=== PATIENT | female | born 1935 | race Caucasian/White ===

== ENCOUNTER 2016-04-03 15:54 | Emergency (ER) | payer OTHER ==
[~2016-04-03] VITALS: Ht 161.3 cm; Wt 71.5 kg
[~2016-04-03 15:54] MED LIST: EYED; FLNIN NAE
[2016-04-03 16:01] VITALS: TEMP 36.5; Ht 161.3 cm; Wt 71.5 kg
[2016-04-03] MEDS ORDERED: RABIES IMMUNE GLOBULIN (HUMAN) 150 INTER.UNIT/ML 2 ML VIAL IM. ONE (16:15)
[2016-04-03] MEDS ORDERED: RABIES VACCINE (IMOVAX) HUMAN DIPL CELL 2.5 INTER.UNIT/ML SYR IM. ONE (16:15)
[2016-04-03] MEDS ORDERED: AMOX875T PO (17:07)
--- NOTE | 2016-04-03 17:09 | EMERGENCY ROOM VISIT NOTE ---
ED Visit Note First contact with patient: 16:04 CHIEF COMPLAINT: Animal bite HISTORY OF PRESENT ILLNESS: This 80-year-old female patient presents to the emergency department ambulatory after they sustained a dog bite to the right hand. 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 She states that [employer] contacted the brand strategist. The patient reports that the animal 's immunizations are not up-to-date. The patient complains of stinging 3/10 pain at the site of the injury. Pain is worse with movement. Tetanus status is up to date. REVIEW OF SYSTEMS: A 6 system review of systems was completed with positives and pertinent negatives listed in the HPI. ALLERGIES: No known drug allergies MEDICATIONS: Simvastatin, Flonase nasal spray PMH: No significant past medical history. PHYSICAL EXAM: Vital Signs reviewed, see Nurse's notes, vital signs stable. GENERAL: This is a 80-year-old female, awake, alert, well appearing, no acute distress. Non toxic in appearance. MUSCULOSKELETAL: Examination of the right hand reveals multiple superficial puncture wounds over the dorsal aspect of the hand. There is no swelling on inspection. Palpation of the lateral aspect of the hand reveals no tenderness. No significant crepitus or warmth noted. No joint space, tendon, or vascular involvement. Distal pulses intact. SKIN: No signs of infection. NEURO: No sensory or motor deficits noted over all dermatomes and myotomes tested. EMERGENCY DEPARTMENT COURSE AND DECISION MAKING: I examined the patient. The patient presented with an isolated bite wound as described as above. Her tetanus is up-to-date. She will be placed on Augmentin. She was given immunoglobulin at a dose of 20 per kilogram. 2 mL of immunoglobulin were infiltrated directly into the wound. She was given 2.5 units Imovax intramuscularly. Conservative measures were discussed. Her wound was cleansed and dressed with bacitracin and a Band-Aid. She verbalized understanding of my assessment and treatment plan and was discharged home in good condition. The patient was independently evaluated by Dr. Mendez, ED attending physician, who agreed with my assessment and treatment plan. DIAGNOSIS: Dog bite Current/Historical Medications Scheduled Amoxicillin & Pot Clavulanate (Augmentin 875-125 mg), 1 TAB PO BID Fluticasone Propionate (Flonase Nasal [place] *), 2 SPRAYS ANGELA DAILY Simvastatin (Zocor), 10 MG PO QPM Allergies Coded Allergies: No Known Allergies (Unverified , 04/03/16) Vital Signs Date Time Temp Pulse Resp B/P Pulse Ox O2 Delivery O2 Flow Rate FiO2 04/03/16 17:21 78 16 136/71 100 04/03/16 16:01 36.5 79 18 95 Room Air Medications Administered Medications (Trade) Dose Ordered Sig/Bella Route Start Time Stop Time Status Last Admin Dose Admin Rabies Immune Globulin (Imogam Rabies Inj) 1,400 interunit ONCE ONCE IM. 04/03/16 16:15 04/03/16 16:16 DC 04/03/16 16:49 1,400 INTERUNIT Rabies Vaccine Human Diploid Cell (Imovax Rabies) 2.5 interunit ONCE ONCE IM. 04/03/16 16:15 04/03/16 16:16 DC 04/03/16 16:47 2.5 INTERUNIT Departure Information Impression Primary Impression: Dog bite Dispostion Home / Self-Care Condition GOOD Prescriptions Amoxicillin & Pot Clavulanate (Augmentin 875-125 mg) 1 Tab Tab 1 TAB PO BID for 7 Days, #14 TAB Prov: Deana Rodriguez ., CONNIE 04/03/16 Referrals Nayely Mendes D.OBrock (PCP) Patient Instructions My [facility] Additional Instructions You have received her first rabies injection. Today is day 0. You will need to return on days 3, 7 and 14 for subsequent injections. Dates to return: 04/06/16 04/10/16 04/17/16 You were prescribed Augmentin to be taken twice daily as prescribed. This is an antibiotic. All antibiotics have the potential to cause diarrhea. Stop this medication and contact a medical provider if you were to develop any significant adverse side effects including: wheezing, shortness of breath, passing out, vomiting, or a diffuse rash. Always take antibiotics as directed and COMPLETE the ENTIRE course regardless of the improvement of your symptoms. Proper wound care is essential for adequate wound healing and infection prevention. You can shower and clean the wound with soap and water. Do not scour over the wound, pat dry with a towel. Do not submerse the wound (i.e. bathe or dish wash) until the wound has fully healed. You can use an antibiotic ointment with a dressing over the wound for the next 3-4 days. After this time you may leave the wound dry and open to the air. For pain control, you can use the following [id number]-ebxabkj medicines (if >12 yo): - Regular strength (325mg/tab) Tylenol (acetaminophen) 2 tabs every 4-6 hours as needed. Do not exceed 12 tablets in a 24 hour period. Avoid taking more than 4 grams (4000 mg) of Tylenol per day. This includes any other sources of acetaminophen you may take on a regular basis. - Regular strength (200 mg/tab) Advil (ibuprofen) 1-2 tabs every 4-6 hours as needed. Do not exceed a dose of 3200 mg per day. Apply ice to the wound for the next 24-48 hours. Return to the emergency department with worsening redness, worsening swelling, drainage, fevers or any other new/concerning symptoms. Problem Qualifiers Primary Impression: Dog bite Encounter type: initial encounter Qualified Codes: W54.0XXA - Bitten by dog , initial encounter
[2016-04-03 17:21] VITALS: BP 136/71; PULSE 78; O2SAT 100
[2016-04-06] MEDS ORDERED: SIMV10TA2 PO (10:06)
== END 2016-04-03 17:25 | disposition home or self-care (01) ==
LOC: C.EDB 15:56 → C.EDD 17:25
DX: S61.451A Open bite of right hand, initial encounter (principal); W54.0XXA Bitten by dog, initial encounter; Y99.0 Civilian activity done for income or pay

== ENCOUNTER 2016-04-06 14:42 | Emergency (ER) | payer OTHER ==
[~2016-04-06] VITALS: Ht 161.3 cm; Wt 72.7 kg
[~2016-04-06 14:42] MED LIST changes: +AMOX875T PO; -EYED; +SIMV10TA2 PO
[2016-04-06 14:55] VITALS: BP 140/82; PULSE 81; TEMP 36.5; O2SAT 96; Ht 161.3 cm; Wt 72.7 kg
--- NOTE | 2016-04-06 15:07 | EMERGENCY ROOM VISIT NOTE ---
ED Visit Note First contact with patient: 14:57 CHIEF COMPLAINT: Rabies prophylaxis HISTORY OF PRESENT ILLNESS: This 80-year-old female patient presents to the emergency department for their second of 4 rabies shot. The patient has not had any complications from the previous injections. They deny any other complaints. REVIEW OF SYSTEMS: A 6 system review of systems was completed with positives and pertinent negatives listed in the HPI. ALLERGIES: No known allergies MEDICATIONS: No chronic medications PMH: Unchanged from previous visit. PHYSICAL EXAM: Vital Signs: Reviewed Nurse's notes, vital signs stable. GENERAL : White female, in no acute distress, well-developed, well-nourished. HEAD: Atraumatic, without temporal or scalp tenderness. EYES: PERRLA, EOMI, no discharge or injection. SKIN: Dog bite to the medial dorsal right hand appears to be well healing without obvious infection. NEUROLOGICAL: Alert and cooperative. Sensory and motor functions grossly intact. EMERGENCY DEPARTMENT COURSE: I examined the patient. The patient was given Imovax 1ml IM. The patient was observed for 20 minutes with no reaction. The patient was discharged home in stable condition. Current/Historical Medications Scheduled Amoxicillin & Pot Clavulanate (Augmentin 875-125 mg), 1 TAB PO BID Fluticasone Propionate (Flonase Nasal [place] *), 2 SPRAYS ANGELA DAILY Simvastatin (Zocor), 10 MG PO QPM Allergies Coded Allergies: No Known Allergies (Unverified , 04/03/16) Vital Signs Date Time Temp Pulse Resp B/P Pulse Ox O2 Delivery O2 Flow Rate FiO2 04/06/16 14:55 36.5 81 18 140/82 96 Room Air Departure Information Impression Primary Impression: Need for post exposure prophylaxis for rabies Dispostion Home / Self-Care Condition GOOD Forms HOME CARE DOCUMENTATION FORM, IMPORTANT VISIT INFORMATION Patient Instructions My [facility] Additional Instructions You were seen and evaluated today on an emergency basis only. This is not a substitute for, or an effort to provide, complete comprehensive medical care. It is not possible to recognize and treat all injuries or illnesses in a single emergency department visit. Please return to the emergency department on 04/10/2016 and 04/17/2016 for your third and fourth immunizations. You are welcome to return to the emergency department anytime with new, worsening, or concerning symptoms.
[2016-04-06] MEDS ORDERED: RABIES VACCINE (IMOVAX) HUMAN DIPL CELL 2.5 INTER.UNIT/ML SYR IM. ONE (15:15)
[2016-04-06] MEDS ORDERED: FLUT0.15 NAE (15:17)
[2016-04-06] MEDS ORDERED: BND25 PO (15:27)
[2016-04-06] MEDS ORDERED: CETI10TA84 PO (15:27)
[2016-04-06] MEDS ORDERED: EPP3/2 IM (15:27)
== END 2016-04-06 15:32 | disposition home or self-care (01) ==
LOC: C.EDB 14:43 → C.EDD 15:32
DX: Z20.3 Contact with and (suspected) exposure to rabies (principal); Z23 Encounter for immunization

== ENCOUNTER 2016-04-10 11:24 | Emergency (ER) | payer OTHER ==
[~2016-04-10] VITALS: Ht 161.3 cm; Wt 72.2 kg
[~2016-04-10 11:24] MED LIST changes: +BND25 PO; +CETI10TA84 PO; +EPP3/2 IM; -FLNIN NAE; +FLUT0.15 NAE
[2016-04-10 11:30] VITALS: TEMP 36.8; Ht 161.3 cm; Wt 72.2 kg
[2016-04-10] MEDS ORDERED: RABIES VACCINE (IMOVAX) HUMAN DIPL CELL 2.5 INTER.UNIT/ML SYR IM. ONE (11:45)
[2016-04-10] MEDS ORDERED: OXYC1TAB3 PO (12:17)
--- NOTE | 2016-04-10 12:18 | EMERGENCY ROOM VISIT NOTE ---
ED Visit Note First contact with patient: 11:39 Chief Complaint: Rabies Return Visit History of Present Illness: This patient is a [id number] who presents to the Emergency Department ambulatory for their third Rabies Vaccination Injections. The patient reports that they had no reaction to previous injection. Patient denies the development of any fevers, chills, sweats, or URI symptoms. She states that the bite has been healing well and there are no signs of infection. Medications: Unchanged from previous visit. Allergies: Bee venom PMH: Unchanged from previous visit. SHx: Patient lives locally with family. ROS: All pertinent positive and negative review of systems are appropriately documented in the History of Present Illness. Physical Exam: VITAL SIGNS - Vital signs and Nursing Notes were reviewed. GENERAL - This is a 80-year-old female, well-developed, well-nourished, and in no acute distress. SKIN - there are multiple scabbed lesions over the dorsal aspect of the right lateral hand. There is no significant surrounding erythema, edema or drainage. CARDIAC - RRR with normal S1 & S2. No murmurs, rubs, or gallops appreciated. RESPIRATORY - Clear to auscultation bilaterally. No wheezes, rales, or rhonchi appreciated. NEURO - Patient is A&Ox3 and communicates appropriately with the provider. ED Course: Previous ED visit note was reviewed by myself prior to patient evaluation. Patient reports no reaction to the previous injection(s). Patient received 2.5 units of Imovax intramuscularly. Patient was observed in the Emergency Department for greater than 20 minutes prior to discharge without signs of reaction. Patient was educated on worrisome symptoms for return visit to the Emergency Department. Patient discharged to home with the intent for follow-up in the Emergency Department as scheduled for the remainder of their injections. Impression: Rabies Prophylaxis Discharge Instructions: You were seen in the Emergency Department today for your Rabies Prophylaxis Injection. You should continue to follow the Discharge Instructions outlined for you in your initial Emergency Department visit. For pain or fever control, you can use the following cqxm-ozl-pobzswf medicines (if >12 yo): - Regular strength (325mg/tab) Tylenol (acetaminophen) 2 tabs every 4-6 hours as needed. Do not exceed 12 tablets in a 24 hour period. Avoid taking more than 4 grams (4000 mg) of Tylenol per day. This includes any other sources of acetaminophen you may take on a regular basis. - Regular strength (200 mg/tab) Advil (ibuprofen) 1-2 tabs every 4-6 hours as needed. Do not exceed a dose of 3200 mg per day. Return to the emergency department if your symptoms worsen despite treatment course outlined above. Current/Historical Medications Scheduled Amoxicillin & Pot Clavulanate (Augmentin 875-125 mg), 1 TAB PO BID Cetirizine (Zyrtec), 10 MG PO HS Fluticasone Propionate (Nasal) (Flonase Allergy Relief), 2 SPRAYS ANGELA DAILY Simvastatin (Zocor), 10 MG PO HS Scheduled PRN Diphenhydramine Hcl (Benadryl), 50 MG PO Q4-6HRS PRN for ALLERGIC REACTION Epinephrine (Epipen), 0.3 MG IM UD PRN for ALLERGIC REACTION Allergies Coded Allergies: Bee Venom (Verified Allergy, Severe, ANAPHYLAXIS, 04/06/16) Vital Signs Date Time Temp Pulse Resp B/P Pulse Ox O2 Delivery O2 Flow Rate FiO2 04/10/16 12:28 69 18 128/82 95 04/10/16 11:30 36.8 77 18 139/84 93 Room Air Medications Administered Medications (Trade) Dose Ordered Sig/Bella Route Start Time Stop Time Status Last Admin Dose Admin Rabies Vaccine Human Diploid Cell (Imovax Rabies) 2.5 interunit ONCE ONCE IM. 04/10/16 11:45 04/10/16 11:46 DC 04/10/16 11:58 2.5 INTERUNIT Departure Information Impression Primary Impression: Rabies, need for prophylactic vaccination against Dispostion Home / Self-Care Condition GOOD Referrals Nayely Mendes D.OBrock (PCP) Patient Instructions My [facility] Additional Instructions You were seen in the Emergency Department today for your Rabies Prophylaxis Injection. You should continue to follow the Discharge Instructions outlined for you in your initial Emergency Department visit. For pain or fever control, you can use the following spih-aic-bomkacs medicines (if >12 yo): - Regular strength (325mg/tab) Tylenol (acetaminophen) 2 tabs every 4-6 hours as needed. Do not exceed 12 tablets in a 24 hour period. Avoid taking more than 4 grams (4000 mg) of Tylenol per day. This includes any other sources of acetaminophen you may take on a regular basis. - Regular strength (200 mg/tab) Advil (ibuprofen) 1-2 tabs every 4-6 hours as needed. Do not exceed a dose of 3200 mg per day. Return to the emergency department if your symptoms worsen despite treatment course outlined above.
[2016-04-10 12:28] VITALS: BP 128/82; PULSE 69; O2SAT 95
== END 2016-04-10 12:29 | disposition home or self-care (01) ==
LOC: C.EDB 11:25 → C.EDD 12:29
DX: Z23 Encounter for immunization (principal); Z20.3 Contact with and (suspected) exposure to rabies

== ENCOUNTER 2016-04-17 11:44 | Emergency (ER) | payer OTHER ==
[~2016-04-17] VITALS: Ht 161.3 cm; Wt 71.3 kg
[~2016-04-17 11:44] MED LIST changes: -AMOX875T PO
[2016-04-17 11:50] VITALS: Ht 161.3 cm; Wt 71.3 kg
--- NOTE | 2016-04-17 12:05 | EMERGENCY ROOM VISIT NOTE ---
ED Visit Note First contact with patient: 11:54 Chief Complaint: Rabies Return Visit History of Present Illness: This patient is a 80-year-old female who presents to the Emergency Department via private vehicle for their final Rabies Vaccination Injection. The patient reports that they had no reaction to previous injection. Patient denies the development of any fevers, chills, sweats, or URI symptoms. Medications: Unchanged from previous visit. Allergies: Bee venom PMH: Unchanged from previous visit. SHx: Unchanged from previous visit. ROS: All pertinent positive and negative review of systems are appropriately documented in the History of Present Illness. Physical Exam: VITAL SIGNS - Vital signs and Nursing Notes were reviewed. GENERAL -80-year-old female, well-developed, well-nourished, and in no acute distress. SKIN - Without rashes or lesions. NEURO - Patient is A&Ox3 and communicates appropriately with the provider. ED Course: Previous ED visit note was reviewed by myself prior to patient evaluation. Patient reports no reaction to the previous injection(s). Patient received 2.5 in her unit of Imovax intramuscularly. Patient was observed in the Emergency Department for greater than 20 minutes prior to discharge without signs of reaction. Patient was educated on worrisome symptoms for return visit to the Emergency Department. Patient discharged to home with the intent for follow-up in with PCP following today's visit. Current/Historical Medications Scheduled Cetirizine (Zyrtec), 10 MG PO HS Fluticasone Propionate (Nasal) (Flonase Allergy Relief), 2 SPRAYS ANGELA DAILY Simvastatin (Zocor), 10 MG PO HS Scheduled PRN Diphenhydramine Hcl (Benadryl), 50 MG PO Q4-6HRS PRN for ALLERGIC REACTION Epinephrine (Epipen), 0.3 MG IM UD PRN for ALLERGIC REACTION Allergies Coded Allergies: Bee Venom (Verified Allergy, Severe, ANAPHYLAXIS, 04/06/16) Vital Signs Date Time Temp Pulse Resp B/P Pulse Ox O2 Delivery O2 Flow Rate FiO2 04/17/16 12:32 67 18 121/63 95 04/17/16 11:50 73 18 143/77 98 Room Air Medications Administered Medications (Trade) Dose Ordered Sig/Bella Route Start Time Stop Time Status Last Admin Dose Admin Rabies Vaccine Human Diploid Cell (Imovax Rabies) 2.5 interunit ONCE ONCE IM. 04/17/16 12:15 04/17/16 12:16 DC 04/17/16 12:19 2.5 INTERUNIT Departure Information Impression Primary Impression: Rabies, need for prophylactic vaccination against Dispostion Home / Self-Care Condition GOOD Referrals Nayely Mendes D.O. (PCP) Patient Instructions My [facility] Additional Instructions Discharge Instructions: CONGRATULATIONS, THIS WAS THE LAST INJECTION FOR THE RABIES SERIES! You were seen in the Emergency Department today for your Rabies Prophylaxis Injection. You should continue to follow the Discharge Instructions outlined for you in your initial Emergency Department visit. For pain or fever control, you can use the following wdfa-qgt-yoxgtkf medicines (if >12 yo): - Regular strength (325mg/tab) Tylenol (acetaminophen) 2 tabs every 4-6 hours as needed. Do not exceed 12 tablets in a 24 hour period. Avoid taking more than 4 grams (4000 mg) of Tylenol per day. This includes any other sources of acetaminophen you may take on a regular basis. - Regular strength (200 mg/tab) Advil (ibuprofen) 1-2 tabs every 4-6 hours as needed. Do not exceed a dose of 3200 mg per day. You develop any redness, swelling, pain at the site where you're bitten please return immediately. Please follow-up with your family doctor regarding today's visit. Return to the emergency department if your symptoms worsen despite treatment course outlined above. Please return to the emergency department complaining of/concerning symptoms.
[2016-04-17] MEDS ORDERED: RABIES VACCINE (IMOVAX) HUMAN DIPL CELL 2.5 INTER.UNIT/ML SYR IM. ONE (12:15)
--- NOTE | 2016-04-17 12:30 | EMERGENCY ROOM VISIT NOTE ---
ED Visit Note First contact with patient: 11:54 Patient was seen by our PA[employer]. I was involved in the patient's care and did evaluate the patient myself. I was involved in the care throughout the ER stay. The patient is here for her rabies vaccine. This was given. She is being discharged.
[2016-04-17 12:32] VITALS: BP 121/63; PULSE 67; O2SAT 95
== END 2016-04-17 12:33 | disposition home or self-care (01) ==
LOC: C.EDB 11:47 → C.EDD 12:33
DX: Z23 Encounter for immunization (principal); Z20.3 Contact with and (suspected) exposure to rabies